=== PATIENT | female | born 1970 | race Hispanic/Latino ===

== ENCOUNTER 2017-05-16 08:08 | Outpatient (CLI) | payer BC | END 2017-05-16 08:09 | disposition home or self-care (01) | LOC: BICMAMMO 08:08 | PROVIDERS: ATTEND Obstetrics & Gynecology | DX: Z12.31 Encounter for screening mammogram for malignant neoplasm of breast (principal) | CPT/HCPCS: 77063; 77067; G0202 ==

== ENCOUNTER 2017-06-29 12:38 | Outpatient (CLI) | payer BC | END 2017-06-29 12:39 | disposition home or self-care (01) | LOC: BICRAD 12:38 | PROVIDERS: ATTEND Internal Medicine | DX: R05 Cough (principal) | CPT/HCPCS: 71046 ==

== ENCOUNTER 2017-09-07 10:32 | Outpatient (CLI) | payer BC ==
[2017-09-07] MEDS ORDERED: ISOVUE-370 76%-LOCM 1 ML ONE (13:51)
== END 2017-09-07 10:33 | disposition home or self-care (01) ==
LOC: BICCT 10:32
PROVIDERS: ATTEND Internal Medicine
DX: R10.9 Unspecified abdominal pain (principal)
CPT/HCPCS: 74177

== ENCOUNTER 2018-05-24 12:24 | Outpatient (CLI) | payer BC | END 2018-05-24 12:25 | disposition home or self-care (01) | LOC: BICMAMMO 12:24 | PROVIDERS: ATTEND Obstetrics & Gynecology | DX: Z12.31 Encounter for screening mammogram for malignant neoplasm of breast (principal); Z80.3 Family history of malignant neoplasm of breast | CPT/HCPCS: 77063; 77067 ==